=== PATIENT | male | born 1955 | race Caucasian/White ===

== ENCOUNTER → 2017-03-27 | Outpatient (CLI) | payer SELFPAY | END | disposition home or self-care (01) | LOC: LAB 17:50 | DX: L08.9 Local infection of the skin and subcutaneous tissue, unspecified (principal) | CPT/HCPCS: 87070; 87077; 87147; 87186; 87205 ==

== ENCOUNTER 2020-02-14 15:12 | Emergency (ER) | payer SELFPAY ==
[~2020-02-14] VITALS: Ht 185.4 cm; Wt 97.1 kg
[2020-02-14] MEDS ORDERED: TELM20 (15:19)
[2020-02-14] MEDS ORDERED: Percocet 5-3251 EACH PO (17:00)
[2020-02-14] MEDS ORDERED: Naprosyn500 MG PO (17:00)
[2020-02-14] MEDS ORDERED: TELMISARTAN20 MG PO (17:19)
== END 2020-02-14 17:21 | disposition home or self-care (01) ==
LOC: ER 15:12
DX: M25.532 Pain in left wrist (principal); Z79.899 Other long term (current) drug therapy; Z87.891 Personal history of nicotine dependence
CPT/HCPCS: 73110; 96372; 99283-25; J1885; J3301

== ENCOUNTER 2020-08-08 14:48 | Emergency (ER) | payer BC ==
[~2020-08-08] VITALS: Ht 185.4 cm; Wt 82.5 kg
[~2020-08-08 14:48] MED LIST: Naprosyn500 MG PO; Percocet 5-3251 EACH PO; TELM20; TELMISARTAN20 MG PO
[2020-08-08 15:34] LABS: BASOPHILS ABSOLUTE AUTO 0.06 K/mm3 (0.00-0.23); BASOPHILS PERCENT AUTO 1 % (0-2); EOSINOPHILS ABSOLUTE AUTO 0.28 K/mm3 (0.00-0.68); EOSINOPHILS PERCENT AUTO 4 % (0-6); Hematocrit 43.8 % (37.0-53.0); Hemoglobin 14.5 g/dL (13.5-17.5); IMMATURE GRAN ABSOLUTE AUTO 0.03 K/mm3 (0.00-0.10); IMMATURE GRAN PERCENT AUTO 0 % (0-1); LYMPHOCYTES ABSOLUTE AUTO 1.06 K/mm3 (0.84-5.20); LYMPHOCYTES PERCENT AUTO 13 % (21-46); MONOCYTES PERCENT AUTO 10 % (4-13); Mean Corpuscular HGB Conc 33.1 g/dL (31.5-36.5); Mean Corpuscular Volume 88 fL (80-100); Mean Platelet Volume 9.7 fL (9.1-12.4); NEUTROPHILS ABSOLUTE AUTO 5.84 K/mm3 (1.96-9.15); NEUTROPHILS PERCENT AUTO 72 % (41-73); Platelet Count 308 K/mm3 (150-400); RDW Coefficient Variation 13.7 % (11.7-14.2); White Blood Cell Count 8.07 K/mm3 (4.00-11.30)
[2020-08-08 15:56] LABS: Alanine Aminotransfer (ALT/SGP 32 U/L (12-78); Albumin, Blood 3.6 g/dL (3.4-5.0); Albumin/Globulin Ratio 1.1 (0.8-1.8); Alk Phos 118 U/L (50-136); Anion Gap 6 mmol/L (6-16); Aspartate Aminotrans (AST/SGOT 18 U/L (12-37); Bilirubin, Total 0.6 mg/dL (0.1-1.0); Blood Urea Nitrogen 20 mg/dL (8-24); Bun/Creatinine Ratio 18.2 (12.0-20.0); CO2, Blood 28 mmol/L (21-32); Calcium, Blood 9.1 mg/dL (8.5-10.1); Chloride, Blood 107 mmol/L (98-108); Globulin, Blood 3.3 g/dL (2.2-4.0); Glomerular Filtration Rate >60 (60-); Glucose, Blood 81 mg/dL (70-99); Potassium, Blood 4.2 mmol/L (3.5-5.5); Sodium, Blood 141 mmol/L (136-145); Total Protein, Blood 6.9 g/dL (6.4-8.2)
[2020-08-08] MEDS ORDERED: CEPH500 PO (17:54)
[2020-08-08] MEDS ORDERED: Mupirocin22 GM TOP (19:16)
[2020-08-08] MEDS ORDERED: METO10 PO (19:16)
== END 2020-08-08 19:30 | disposition home or self-care (01) ==
LOC: ER 14:48
PROVIDERS: Physician Assistant
DX: L03.311 Cellulitis of abdominal wall (principal); I10 Essential (primary) hypertension; R11.2 Nausea with vomiting, unspecified; Z93.1 Gastrostomy status; Z79.899 Other long term (current) drug therapy; Z87.891 Personal history of nicotine dependence
CPT/HCPCS: 36415; 74177; 80053; 85025; 93005; 93010; 99284-25; Q9967

== ENCOUNTER 2022-10-23 22:14 | Emergency (ER) | payer MEDICARE | END 2022-10-24 00:23 | disposition home or self-care (01) | LOC: ER 22:14 | DX: E16.2 Hypoglycemia, unspecified (principal); Z79.899 Other long term (current) drug therapy; M10.9 Gout, unspecified; I10 Essential (primary) hypertension; Z87.891 Personal history of nicotine dependence ==

== ENCOUNTER 2024-01-21 11:27 | Day surgery (SDC) | payer MEDICARE ==
[~2024-01-21] VITALS: Ht 185.4 cm; Wt 70.4 kg
[~2024-01-21 11:27] MED LIST changes: +CEPH500 PO; +Lactated Ringer's 1,000 ML IV ONE; +METO10 PO; +Mupirocin22 GM TOP; +propofoL 50 ML IV ONE
[2024-01-21] MEDS ORDERED: Lactated Ringer's 1,000 ML IV ONE (13:49)
[2024-01-21 14:09] VITALS: BP 113/85
== END 2024-01-21 14:10 | disposition home or self-care (01) ==
LOC: ORSCSDS 11:27
PROVIDERS: Specialist
PROC: 0DB58ZX Excision of Esophagus, Via Natural or Artificial Opening Endoscopic, Diagnostic (ICD-10-PCS; principal; 2024-01-21 13:15)
PROC: 0DJD8ZZ Inspection of Lower Intestinal Tract, Via Natural or Artificial Opening Endoscopic (ICD-10-PCS; 2024-01-21 13:15)
DX: K22.10 Ulcer of esophagus without bleeding (principal); Z12.11 Encounter for screening for malignant neoplasm of colon; R11.2 Nausea with vomiting, unspecified; Z85.028 Personal history of other malignant neoplasm of stomach; K21.9 Gastro-esophageal reflux disease without esophagitis; Z98.84 Bariatric surgery status; Z79.899 Other long term (current) drug therapy
CPT/HCPCS: 88305; 88312; 88342; J2704; J7120